=== PATIENT | male | born 1950 | race Caucasian/White ===

== ENCOUNTER → 2023-07-24 08:01 | Outpatient (REF) | payer MEDICARE, OTHER, SELFPAY ==
[2023-07-24 11:53] LABS: % Basophils 0.4 % (0-2); % Eosinophils 1.6 % (0-6); % Immature Granulocytes 0.2 % (0-0.5); % Lymphocytes 33.5 % (20.5-51.1); % Monocytes 7.9 % (1.7-9.3); % Neutrophils 56.4 % (42.2-75.2); Absolute Eosinophils 0.1 10^3/uL (0-0.7); Absolute Lymphocytes 1.7 10^3/uL (1.2-3.4); Absolute Monocytes 0.4 10^3/uL (0.1-0.6); Absolute Neutrophils 2.8 10^3/uL (1.4-6.5); Hematocrit 40.3 % (39.0-52.0); Hemoglobin 13.6 g/dL (13.0-18.0); Mean Corp Hgb Conc. 33.7 g/dL (33.0-37.0); Mean Corpuscular Hgb 28.8 pg (27.0-31.0); Mean Corpuscular Volume 85.2 fL (80.0-94.0); Nucleated Red Blood Cells % 0 % (-); Platelet Count 163 10^3/uL (130-400); Red Blood Cell Count 4.73 10^6/uL (4.70-6.10)
[2023-07-24 12:01] LABS: INR 3.03; PT 31.3 Sec (11.4-14.6)
[2023-07-24 12:09] LABS: ALT (SGPT) 32 U/L (0-50); AST (SGOT) 35 U/L (17-59); Albumin 4.3 g/dl (3.5-5.0); Alkaline Phosphatase 67 U/L (38-126); Blood Urea Nitrogen 14 mg/dl (9-20); Calcium 9.2 mg/dl (8.4-10.2); Carbon Dioxide 28 mmol/L (22-30); Chloride 103 mmol/L (98-107); Glucose 147 mg/dl (70-99); HDL Cholesterol 56 mg/dl; LDL Cholesterol, Calculated 64 mg/dl; Potassium 4.1 mmol/L (3.5-5.1); Sodium 137 mmol/L (135-145); Total Bilirubin 0.7 mg/dl (0.2-1.3); Total Cholesterol 150 mg/dl (50-199); Total Protein 7.3 g/dl (6.3-8.2); Triglyceride 150 mg/dl (10-149); Very Low Density Lipoprotein 30 mg/dl (0-30); eGFR > 60.00
[2023-07-24 12:38] LABS: PSA, Total - Screen 3.83 ng/ml (0.0-4.0)
[2023-07-24 12:56] LABS: Glycohemoglobin (HgbA1c) 7.4 % (4.0-5.6)
== END ==
LOC: HWLAB 08:01
PROVIDERS: ATTENDING PHYSICIAN Family Medicine
DX: Z86.718 Personal history of other venous thrombosis and embolism (principal); Z79.01 Long term (current) use of anticoagulants; Z12.5 Encounter for screening for malignant neoplasm of prostate; E78.00 Pure hypercholesterolemia, unspecified; E11.9 Type 2 diabetes mellitus without complications; I10 Essential (primary) hypertension; K51.90 Ulcerative colitis, unspecified, without complications
CPT/HCPCS: 36415; 80053; 80061; 83036; 85025; 85610; G0103

== ENCOUNTER → 2024-02-04 07:22 | Outpatient (REF) | payer MEDICARE, OTHER, SELFPAY ==
[2024-02-04 09:47] LABS: Blood Urea Nitrogen 14 mg/dl (9-20); Calcium 9.1 mg/dl (8.4-10.2); Carbon Dioxide 27 mmol/L (22-30); Chloride 104 mmol/L (98-107); Glucose 174 mg/dl (70-99); INR 3.07; PT 32.1 Sec (11.4-14.6); Potassium 4.2 mmol/L (3.5-5.1); Sodium 141 mmol/L (135-145); eGFR > 60.00
[2024-02-04 10:00] LABS: Microalbumin, Random Urine 1.8 mg/dl (0.6-1.7); Microalbumin/creatinine Ratio 9.3 mg/g
[2024-02-04 10:29] LABS: Glycohemoglobin (HgbA1c) 7.4 % (4.0-5.6)
== END ==
LOC: HWLAB 07:22
PROVIDERS: ATTENDING PHYSICIAN Family Medicine
DX: Z86.718 Personal history of other venous thrombosis and embolism (principal); Z79.01 Long term (current) use of anticoagulants; E11.9 Type 2 diabetes mellitus without complications
CPT/HCPCS: 36415; 80048; 82043; 82570; 83036; 85610

== ENCOUNTER → 2024-07-16 07:26 | Outpatient (REF) | payer MEDICARE, OTHER, SELFPAY ==
[2024-07-16 10:06] LABS: PT 29.1 Sec (11.4-14.6)
[2024-07-16 10:28] LABS: Blood Urea Nitrogen 14 mg/dl (9-20); Calcium 9.2 mg/dl (8.4-10.2); Carbon Dioxide 27 mmol/L (22-30); Chloride 104 mmol/L (98-107); Glucose 208 mg/dl (70-99); Potassium 4.1 mmol/L (3.5-5.1); Sodium 142 mmol/L (135-145); eGFR > 60.00
[2024-07-16 10:58] LABS: Glycohemoglobin (HgbA1c) 9.1 % (4.0-5.6)
== END ==
LOC: HWLAB 07:26
PROVIDERS: ATTENDING PHYSICIAN Family Medicine
DX: E11.9 Type 2 diabetes mellitus without complications (principal); Z86.718 Personal history of other venous thrombosis and embolism; Z79.01 Long term (current) use of anticoagulants
CPT/HCPCS: 36415; 80048; 83036; 85610

== ENCOUNTER → 2025-03-09 08:46 | Outpatient (REF) | payer MEDICARE, OTHER, SELFPAY ==
[2025-03-09 10:12] LABS: INR 2.68; PT 28.7 Sec (11.4-14.6)
== END ==
LOC: REG 08:46
PROVIDERS: ATTENDING PHYSICIAN Family Medicine
DX: Z86.718 Personal history of other venous thrombosis and embolism (principal); Z79.01 Long term (current) use of anticoagulants
CPT/HCPCS: 36415; 85610